=== PATIENT | male | born 2000 | race Caucasian/White ===

== ENCOUNTER 2019-12-02 16:15 | Emergency (ER) | payer SELFPAY ==
[2019-12-02 16:22] VITALS: BP 128/75; PULSE 82; RESP 20; TEMP 37; O2SAT 98
--- NOTE | 2019-12-02 16:35 | ED.URI ---
HPI - URI/Sore Throat General Chief Complaint: Upper Respiratory Infection Stated Complaint: FEVER/HEADACHE/WEAKNESS/UNABLE TO EAT Time Seen by Provider: 12/02/19 16:40 Source: patient Mode of arrival: ambulatory Limitations: no limitations History of Present Illness HPI Narrative: A 18 y/o male, who is a smoker/drinker, presents to with c/o a VALE and sinus congestion for 2 days.He reports rhinorrhea, a cough, and a PSHx of an appendectomy, but denies an earache, a wheeze, ABD pain, and sick contacts. Pt states that he had 5 episodes of N/V/D last night, with the vomiting occurring first and the diarrhea being the most recent. Pt has not eaten today. Onset (ago): day(s) (2) Related Data Allergies Allergy/AdvReac Type Severity Reaction Status Date / Time No Known Allergies Allergy Verified 12/02/19 16:29 Review of Systems Review of Systems: Narrative: General/Constitutional: Denies: weight loss,fever Eyes: Denies: Redness,discharge Ears/Nose/Throat: Reports: sinus congestion, rhinorrhea; Denies: Epistaxis,ear discharge, earache Respiratory: Reports: a cough; Denies: Hemoptysis, wheeze Gastrointestinal: Reports: N/V/D; Denies: Bleeding-rectal, ABD pain Skin: Denies: Lumps, eruption Neurologic: Reports: VALE; Denies: Focal Weakness,Sz Hematologic: Denies: Petechiae/Purpura Psychiatric: Denies: Suicidal ideation All systems reviewed & are unremarkable except as noted in HPI and below PMFSH Surgical History Surgical History (Updated 12/02/19 @ 16:59 by Deysi Rodriguez) Hx of appendectomy Social History Social History (Updated 12/02/19 @ 16:59 by Deysi Rodriguez) Smoking status: Current some day smoker Alcohol intake: current Comments No PCP on file. At time of signature, agree with nursing past medical, surgical, social and family history. There is no relevant family history pertinent to the presenting complaint Exam Narrative: Exam Narrative: General Appearance: Well appearing, Well nourished EYE: PERRLA, Conjunctiva clear Ears: Auditory canal normal, TM normal Nose: Rhinorrhea, Mucousal erythema Mouth/Throat: MM moist, Uvula midline, Pharyngeal erythema Neck: Supple, No adenopathy Respiratory: No respiratory distress, Breath sounds equal, Clear to auscultation GI:Soft , NT Cardiovascular: RRR, No JVD Musculoskeletal: Non tender, Normal strength Skin: Warm, Dry Neurological: A&O x3, CN II-XII intact Psychiatric: Normal mood, Normal affect Course Vital Signs Vital signs: Vital Signs Temperature 98.6 F 12/02/19 16:22 Pulse Rate 82 12/02/19 16:22 Respiratory Rate 20 12/02/19 16:22 Blood Pressure 128/75 12/02/19 16:22 Pulse Oximetry 98 12/02/19 16:22 Temperature 98.6 F 12/02/19 16:22 Pulse Rate 82 12/02/19 16:22 Respiratory Rate 20 12/02/19 16:22 Blood Pressure 128/75 12/02/19 16:22 Pulse Oximetry 98 12/02/19 16:22 MDM - URI/Sore Throat Lab Data Labs: Influenza A Screen Negative Reference Range: Negative Influenza B Screen Positive Reference Range: Negative Discharge Plan Discharge Clinical Impression: Influenza B Patient Disposition: Home, Self-Care Condition: Stable Instructions: Influenza (ED) Prescriptions: New oseltamivir [Tamiflu] 75 mg capsule 75 mg PO Q12H 5 Days Qty: 10 RF: 0 promethazine-codeine 6.25-10 mg/5 mL syrup 5 ml PO Q4-6H PRN (Reason: cough) Qty: 110 RF: 0 benzonatate [Tessalon Perles] 100 mg capsule 100 mg PO TID Qty: 20 RF: 1 Interventions: Discharge Disposition Last Done: 12/02/19 16:49 Follow-up/Referrals: Sri,Jesus Hutchins MD [Primary Care Provider] - Stand Alone Forms: Work/School Release IP Discharge Date/Time: 12/02/19 16:49
[2019-12-02] MEDS: ONDANSETRON HCL ODT 4 MG TABLET PO (16:47)
== END 2019-12-02 16:49 | disposition home or self-care (01) ==
PROVIDERS: Emergency Provider Emergency Medicine; PCP Family Medicine
DX: J10.1 Influenza due to other identified influenza virus with other respiratory manifestations (principal)
CPT/HCPCS: 87804; 99203; A9270; G0463

== ENCOUNTER 2019-12-06 15:31 | Emergency (ER) | payer SELFPAY ==
--- NOTE | ~2019-12-06 | XR_ITS ---
EXAMINATION: XR chest 2V 12/06/2019 16:14 INDICATION: Fever, cough. Influenza B. PROCEDURE: 2 view chest COMPARISON: No prior studies for comparison. FINDINGS: Focal infiltrate left upper lung most likely atelectasis or scarring. No focal pneumonia, e ida. The cardiomediastinal silhouette is within normal limits. There are no pleural effusions. The re is no pneumothorax suspected. IMPRESSION: 1: Focal left upper lobe infiltrate, most likely atelectasis/scarring. Reviewed, dictated and finalized at location A. [employer]
[2019-12-06 15:46] VITALS: BP 130/77; PULSE 89; RESP 20; TEMP 37.6; O2SAT 98
--- NOTE | 2019-12-06 16:09 | ED.GENADULT ---
HPI - General Adult General Chief complaint: Upper Respiratory Infection Stated complaint: influenza B Source: patient and family Mode of arrival: ambulatory Limitations: no limitations History of Present Illness HPI narrative: Otf is a previously healthy 18-year-old man that was diagnosed with influenza B 5 days ago.. However he still has persistent body aches, fevers, chills, coughing, nausea, vomiting and poor p.o. intake. he has only helped down minimal fluids and a little chicken noodle soup. He denies any chest pain or shortness of breath as well as syncope. Related Data Allergies Allergy/AdvReac Type Severity Reaction Status Date / Time No Known Allergies Allergy Verified 12/02/19 16:29 Review of Systems Constitutional: Constitutional: Reports as per HPI Eyes: Eyes: Reports no additional eye complaints ENT: Reports system reviewed and no additional complaints, except as documented Cardiovascular: Cardiovascular: Denies chest pain Respiratory: Respiratory: Reports cough, Denies dyspnea and Denies wheezing Gastrointestinal: Gastrointestinal: Reports as per HPI Genitourinary: Genitourinary: Reports no additional male genitourinary complaints Musculoskeletal: Musculoskeletal: Reports no additional musculoskeletal complaints Integumentary/Breasts: Skin/Breast: Reports system reviewed and no additional complaints, except as docu Neurologic: Reports system reviewed and no additional complaints, except as documented Psychiatric: Psychiatric: Reports no additional psychiatric complaints Endocrine: Endocrine: Reports no additional endocrine complaints Hematologic/Lymphatic: Hematologic/Lymphatic: Reports no additional hematologic/lymphatic complaints Allergic/Immunologic: Allergic/Immunologic: Reports no additional allergic/immunologic complaints [facility], [facility] Surgical History Surgical History Hx of appendectomy Social History Social History Smoking status: Current some day smoker Alcohol intake: current Gender identity (if verbalized by the patient): Male Exam Const: General: alert Orientation/consciousness: patient oriented x3 Other: looks fatigued lying in bed but no acute distress HENMT: Other: normocephalic, atraumatic, EOMI Eyes: Conjunctivae: conjunctivae normal Pupils: Equal, round and reactive pupils present Neck: Neck: normal visual inspection Chest: Chest palpation & inspection: normal inspection of the chest Resp: Effort & Inspection: normal respiratory effort Cardio: Rate: regular rate Rhythm: regular rhythm GI: GI Palp: Yes Soft to palpation and No Tenderness to palpation present (GI) Back/Spine/Pelvis: Back: no CVA tenderness Skin: General skin exam: normal color Rashes: no rashes Neuro: General: patient oriented x3 and moves all extremities Extrem: General: normal to inspection Psych: Mental Status: mental status grossly normal Course Course Emergency Course: thierry was seen and evaluated. Ordered chest x-ray, CBC, BMP to assess for secondary bacterial infection or signs of dehydration. labs and chest x-ray were largely unremarkable. he was given a script for Zofran and discharged and educated on return precautions. Vital Signs Vital signs: Vital Signs Temperature 37.6 C 12/06/19 15:46 Pulse Rate 89 12/06/19 15:46 Respiratory Rate 12/06/19 15:46 Blood Pressure 130/77 12/06/19 15:46 Pulse Oximetry 98 12/06/19 15:46 Temperature 37.6 C 12/06/19 15:46 Pulse Rate 89 12/06/19 15:46 Respiratory Rate 12/06/19 15:46 Blood Pressure 130/77 12/06/19 15:46 Pulse Oximetry 98 12/06/19 15:46 Medical Decision Making Vital Signs Vital Signs: Vital Signs Temperature 37.6 C 12/06/19 15:46 Pulse Rate 89 12/06/19 15:46 Respiratory Rate 12/06/19 15:46 Blood Pressure 130/77 12/06/19 15:46 Pulse
[2019-12-06] MEDS: SODIUM CHLORIDE 0.9% IV 500 ML 999 ML IV CONT (16:16)
[2019-12-06 16:19] LABS: Anion Gap 16.8 mmol/L (7-16); Blood Urea Nitrogen 16 mg/dL (7-18); Calcium 8.7 mg/dL (8.5-10.1); Carbon Dioxide 25 mmol/L (21-32); Chloride 98 mmol/L (98-108); Estimated CRCL calculation 76 ml/min; Estimated Glomerular Filt Rate > 60; Glucose 95 mg/dL (70-99); Osmolality Calculated 283 mOsm/kg (285-295); Potassium 3.8 mmol/L (3.5-5.1); Sodium 136 mmol/L (136-145)
[2019-12-06] MEDS: ONDANSETRON INJ 4 MG/2 ML VIAL IV PUSH (16:24)
[2019-12-06] MEDS: KETOROLAC 15 MG/ML VIAL (*BKC) IV PUSH (16:24)
[2019-12-06 16:33] LABS: Hematocrit 43.6 % (40.0-54.0); Hemoglobin 14.8 g/dL (14.0-18.0); Immature Platelet Fraction Pct 3.5 % (1.0-7.0); Mean Corpuscular HGB Conc 33.9 g/dL (32.0-36.0); Mean Corpuscular Hemoglobin 28.9 pg (27.0-31.0); Mean Corpuscular Volume 85.2 fL (78.0-102.0); Platelet Count Result 89 K/mm3 (150-420); Red Blood Count 5.12 M/mm3 (4.70-6.10); Red Cell Distribution Width 12.1 % (11.6-14.4); White Blood Count 7.5 K/mm3 (4.8-10.8)
[2019-12-06 16:51] LABS: Band Neutrophils Percent 7 % (0-6); Basophils Percent Manual 0 % (0-1); Eosinophils Percent Manual 0 % (1-6); Lymphocytes Percent Manual 16 % (18-44); Monocytes Absolute Manual 0.52 K/mm3 (0.1-0.90); Monocytes Percent Manual 7 % (3-9); Neutrophils Absolute Manual 5.77 K/mm3 (1.3-6.7); Neutrophils Percent Manual 70 % (46-73); Platelet Estimate Decreased (Adequate); Total Cells Counted 100
[2019-12-06 16:52] LABS: Atypical Lymphocytes Present
[2019-12-06 17:09] VITALS: BP 122/79; PULSE 84; RESP 18; TEMP 37.1; O2SAT 98
== END 2019-12-06 17:11 | disposition home or self-care (01) ==
PROVIDERS: Emergency Provider Family Medicine; PCP Family Medicine
DX: J11.1 Influenza due to unidentified influenza virus with other respiratory manifestations (principal)
CPT/HCPCS: 36415; 71046; 80048; 85025; 85055; 96374; 96375; 99283; 99284; J1885; J2405; J7040